=== PATIENT | female | born 1985 | race Caucasian/White ===

== ENCOUNTER 2017-07-09 22:03 | Emergency (ER) | payer OTHER ==
[2017-07-10] MEDS ORDERED: LEVALBUTEROL 1.25 MG/3 ML NEB ONE (00:44)
[2017-07-10] MEDS ORDERED: ACETAMINOPHEN 500 MG TAB ONE (00:44)
--- NOTE | 2017-07-10 01:14 | EDPHYS ---
Physician Documentation [facility] Name: Dejon Vasques Age: 31 yrs Sex: Female : 1985 Arrival Date: 07/09/2017 Time: 22:04 Bed 15 Private MD: ED Physician Ceferino Marinelli HPI: 07/10 00:10 This 31 yrs old Unknown Female presents to ER via Ambulatory with complaints of Chest cp Congestion, Fever, Cough, 6MONTHS . 00:10 The patient or guardian reports cough, that is intermittent. cp 00:10 Onset: The symptoms/episode began/occurred 3 day(s) ago. cp 00:10 Associated signs and symptoms: Pertinent positives: chest pain, with cough, fever, sore cp throat, vomiting. 00:10 Severity of symptoms: in the emergency department the symptoms are unchanged despite cp home interventions. 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 - Social history:: Smoking status: Patient/guardian denies using tobacco, Patient/guardian denies using alcohol, street drugs. ROS: 07/10 00:15 Eyes: Negative for injury, pain, redness, and discharge. cp Constitutional: Positive for fever. ENT: Positive for rhinorrhea, sinus congestion, sinus pain, sore throat, Negative for drainage from ear(s), difficulty swallowing, difficulty handling secretions. Neck: Negative for pain with movement, pain at rest, stiffness. Cardiovascular: Positive for chest pain, with cough, Negative for palpitations. Respiratory: Positive for cough, "sounds productive", shortness of breath, at rest. Abdomen/GI: Negative for abdominal pain, vomiting, diarrhea, constipation, anorexia, dysphagia. Back: Negative for radiated pain. : Negative for urinary symptoms. Skin: Negative for cellulitis, rash. Neuro: Negative for altered mental status, syncope, near syncope, weakness. All other systems are negative. Exam: 00:22 Constitutional: The patient appears in no acute distress, alert, awake, non-toxic, well cp developed, well nourished, appears mildly ill 00:22 Head/face: Sinus tenderness, that is moderate, is located over the right frontal sinus.cp 00:22 Eyes: Periorbital structures: appear normal, Pupils: equal, round, and reactive to light and accomodation, Extraocular movements: intact throughout, Conjunctiva: normal, no exudate, no injection, Sclera: no appreciated abnormality, Lids and lashes: appear normal, bilaterally. 00:22 ENT: External ear(s): are unremarkable, Ear canal(s): are normal, clear, TM's: dullness, bilaterally, Nose: nasal drainage, that is minimal, Mouth: Lips: moist, Oral mucosa: moist, Posterior pharynx: Airway: no evidence of obstruction, patent, Tonsils: no enlargement, no exudate, Uvula: midline, swelling, is not appreciated, erythema, that is mild, exudate, is not appreciated, Voice: is normal. 00:22 Neck: ROM/movement: is normal, is supple, no range of motions limitations, no meningismus, no nuchal rigidity. 00:22 Chest/axilla: Inspection: normal, Palpation: is normal, no crepitus, no tenderness. 00:22 Cardiovascular: Rate: tachycardic, Rhythm: regular. 00:22 Respiratory: the patient does not display signs of respiratory distress, Respirations: normal, no use of accessory muscles, no retractions, no splinting, no tachypnea, labored breathing, is not present, Breath sounds: bronchial sounds, that are mild, are heard diffusely, decreased breath sounds, are not appreciated, stridor, is not appreciated, + upper airway congestion. 00:22 Abdomen/GI: Exam negative for discomfort, distension, guarding, Inspection: gravid appearance, is noted. 00:22 Back: pain, is absent, ROM is normal. 00:22 : CVA tenderness, is absent. 00:22 Skin: cellulitis, is not appreciated, no rash present. 00:22 Neuro: Orientation: to person, place \\T\\ time. Mentation: lucid, able to follow commands, Cerebellar function: is grossly normal, Motor: moves all fours, strength is normal, Sensation: no obvious gross deficits. Vital Signs: 07/09 22:27 BP 132 / 68; Pulse 121; Resp 20 S; Temp 100.5(O); Pulse Ox 98% on R/A; Weight 126.1 kg bb (R); Height 5 ft. 8 in. (172.72 cm) (R); Pain 8/10; 07/10 01:15 BP 128 / 64; Pulse 91; Resp 16; Temp 98.5(O); Pulse Ox 100% on R/A; lk1 07/09 22:27 Body Mass Index 42.27 (126.10 kg, 172.72 cm) bb MDM: 07/09 23:45 Patient medically screened. cp 07/10 00:30 Differential diagnosis: bronchitis, flu, URI. cp 01:12 Data reviewed: vital signs, nurses notes, lab test result(s). cp 01:12 Counseling: I had a detailed discussion with the patient and/or guardian regarding: the cp historical points, exam findings, and any diagnostic results supporting the discharge/admit diagnosis, lab results, the need for outpatient follow up, an OB/Gyne specialist, to return to the emergency department if symptoms worsen or persist or if there are any questions or concerns that arise at home. Response to treatment: the patient's symptoms have markedly improved after treatment, and as a result, I will discharge patient. 03 00:10 Order name: Influenza Screen (a \\T\\ B) cp 07/10 00:10 Order name: Strep cp 07/10 00:10 Order name: Urine Microscopic Only cp 07/10 00:42 Order name: Group A Streptococcus Rapid Sc; Complete Time: 00:56 EDMS 07/10 00:56 Interpretation: Reviewed. cp 07/10 00:43 Order name: Influenza Screen (A ; Complete Time: 00:56 EDMS 07/10 00:56 Interpretation: Reviewed. cp 07/10 00:10 Order name: Urine Test (obtain specimen); Complete Time: 01:50 cp 07/10 00:10 Order name: Urine Dipstick-Ancillary (obtain specimen); Complete Time: 01:50 cp 07/10 00:10 Order name: FHT's; Complete Time: 01:50 cp Administered Medications: 00:10 CANCELLED (Physician Discretion): Albuterol 2.5 mg Inhalation once cp 00:20 Drug: Tylenol 1000 mg Route: PO; ea 01:15 Follow up: Response: No adverse reaction; Temperature is decreased lk1 00:20 Drug: Xopenex 1.25 mg Route: Inhalation; ea Disposition: 02:00 Chart complete. cp Disposition: 07/10/17 01:14 Discharged to Home. Impression: Acute sinusitis, unspecified, Acute upper respiratory infection, unspecified. - Condition is Stable. - Discharge Instructions: Sinusitis, Adult, Upper Respiratory Infection, Adult, Cool Mist Vaporizers. - Prescriptions for Zithromax Z- Larry 250 mg Oral Tablet - take 1 tablet by ORAL route as directed for 5 days Day 1 - take two (2) tablets one time. Day 2, 3, 4 , 5 take one (1) tablet once daily.; 6 tablet. Albuterol Sulfate 90 mcg/actuation - inhale 1-2 puff by INHALATION route every 4-6 hours; 1 Inhaler. - Medication Reconciliation Form, Thank You Letter, Antibiotic Education, Prescription Opioid Use form. - Follow up: Private Physician; When: 2 - 3 days; Reason: Recheck today's complaints. - Problem is new. - Symptoms have improved. Addendum: 07/18/2017 19:01 Co-signature as Attending Physician, Ceferino Marinelli MD. krishna scott Signatures: Dispatcher [employer] EDMS Ceferino Marinelli MD MD pkl Ballard, Brenda, RN RN Zhen Reed PA PA cp Alley Bruner RN RN lk1 Juana Galan RN RN ea Corrections: (The following items were deleted from the chart) 07/10 00:10 00:10 Albuterol 2.5 mg Inhalation once ordered. cp cp
--- NOTE | 2017-07-10 01:14 | ER ---
Nurse's Notes [facility] Name: Dejon Vasques Age: 31 yrs Sex: Female : 1985 Arrival Date: 07/09/2017 Time: 22:04 Bed 15 Private MD: Diagnosis: Acute sinusitis, unspecified;Acute upper respiratory infection, unspecified Presentation: 07/09 22:24 Presenting complaint: Patient states: she is 6 months and has been having bb cough, cold, fever symptoms x 3 days, started vomiting today with lower abdominal pain has been taking tylenol cold and sinus but it is not helping, pt is newly diagnosed gestational diabetes. Transition of care: patient was not received from another setting of care. Onset of symptoms was July 06, 2017. Care prior to arrival: None. 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 - Social history:: Smoking status: Patient/guardian denies using tobacco, Patient/guardian denies using alcohol, street drugs. Screenin/17 01:52 Abuse screen: Denies threats or abuse. Denies injuries from another. Nutritional lk1 screening: No deficits noted. Tuberculosis screening: No symptoms or risk factors identified. Fall Risk None identified. Assessment: 07/09 22:31 General: Appears uncomfortable, Behavior is calm, cooperative, appropriate for age. ea Pain: Complains of pain in right lower quadrant Pain currently is 7 out of 10 on a pain scale. Quality of pain is described as aching, Is episodic, Aggravated by coughing. Neuro: Level of Consciousness is awake, alert, obeys commands, Oriented to person, place, time, situation. Cardiovascular: Heart tones present Patient's skin is warm and dry. Respiratory: Airway is patent Respiratory effort is even, unlabored, Respiratory pattern is regular, symmetrical, Breath sounds with crackles in left posterior lower lobe and right posterior middle lobe. GI: Abdomen is round Bowel sounds present X 4 quads. : No signs and/or symptoms were reported regarding the genitourinary system. EENT: Reports nasal congestion coughing. Derm: Skin is pink, warm \T\ dry. Vital Signs: 22:27 BP 132 / 68; Pulse 121; Resp 20 S; Temp 100.5(O); Pulse Ox 98% on R/A; Weight 126.1 kg bb (R); Height 5 ft. 8 in. (172.72 cm) (R); Pain 8/10; 07/10 01:15 BP 128 / 64; Pulse 91; Resp 16; Temp 98.5(O); Pulse Ox 100% on R/A; lk1 07/09 22:27 Body Mass Index 42.27 (126.10 kg, 172.72 cm) bb Vitals: 01:52 Heart Tones 154 in left lower abdomen. [facility] ED Course: 07/09 22:04 Patient arrived in ED. al2 22:26 Triage completed. bb 22:27 Arm band placed on Patient placed in an exam room, on a stretcher, on pulse oximetry. bb Family accompanied patient. 22:31 Juana Galan, SAIDA is Primary Nurse. ea 22:31 Patient has correct armband on for positive identification. Call light in reach. Side ea rails up X 1. 23:45 Zhen Mujica PA is [facility]. cp 23:45 Ceferino Marinelli MD is Attending Physician. 07/10 01:52 No provider procedures requiring assistance completed. Patient did not have IV access lk1 during this emergency room visit. Administered Medications: 00:10 CANCELLED (Physician Discretion): Albuterol 2.5 mg Inhalation once cp 00:20 Drug: Tylenol 1000 mg Route: PO; ea 01:15 Follow up: Response: No adverse reaction; Temperature is decreased [facility] 00:20 Drug: Xopenex 1.25 mg Route: Inhalation; ea Outcome: 01:14 Discharge ordered by . cp 01:52 Discharged to home ambulatory. lk1 01:52 Condition: stable 01:52 Discharge instructions given to patient, Instructed on discharge instructions, follow up and referral plans. medication usage, safety practices, Demonstrated understanding of instructions, follow-up care, medications, Prescriptions given X 2. 01:53 Patient left the ED. lk1 Signatures: Gianna Little, RN RN bb Zhen Mujica PA PA cp Kluge, Leah, RN RN lk1 Juana Galan RN RN mag Spence, Darcie dang
[2017-07-10 02:12] LABS: Urine Bacteria 20-50 /HPF (<20); Urine Culture Reflex Order REFLEXED; Urine Mucus HEAVY /HPF (NONE SEEN); Urine RBC NONE SEEN /HPF (NONE SEEN)
== END 2017-07-10 01:53 | disposition home or self-care (01) ==
LOC: ER 22:03
DX: J01.90 Acute sinusitis, unspecified (principal); O24.419 Gestational diabetes mellitus in pregnancy, unspecified control; Z3A.23 23 weeks gestation of pregnancy
CPT/HCPCS: 81015; 87070; 87081; 87086; 87088; 87804; 99284

== ENCOUNTER 2018-06-12 19:37 | Emergency (ER) | payer OTHER, SELFPAY ==
[2018-06-12 20:34] LABS: Absolute Lymphocytes (CBC) 3.1 K/uL (0.7-4.9); Absolute Monocytes 0.7 K/uL (0.1-1.3); Absolute Neutrophil 8.1 K/uL (1.8-8.0); Basophils % 0.7 % (0-1.3); Eosinophils % 1.7 % (0-4.4); Hematocrit 42.4 % (36.0-45.0); Lymphocytes % 25.3 % (15.3-44.8); Monocytes % 5.7 % (3.3-12.3); RBC Red Blood Cell Count 4.92 M/uL (3.86-4.86)
[2018-06-12] MEDS ORDERED: NA CHLORIDE 0.9% 1,000 ML ONE (20:46)
[2018-06-12 20:53] LABS: ALT/SGPT 15 U/L (12-78); AST/SGOT 11 U/L (15-37); Albumin 3.4 g/dL (3.4-5.0); Alkaline Phosphatase 109 U/L (45-117); BUN Blood Urea Nitrogen 11 mg/dL (7-18); Bicarbonate 28 mmol/L (21-32); Bilirubin Direct < 0.1 mg/dL (0-0.2); Bilirubin Total 0.2 mg/dL (0.2-1.0); Glucose Level 302 mg/dL (74-106); Lipase 85 U/L (73-393); Potassium 3.6 mmol/L (3.5-5.1); Protein, Total 7.2 g/dL (6.4-8.2); Sodium Level 135 mmol/L (136-145)
--- NOTE | 2018-06-12 21:22 | RAD REPORT ---
EXAM DESCRIPTION: CT - Abdomen Pelvis W Contrast - 06/12/2018 8:48 pm CLINICAL HISTORY: Abdominal pain/lower abdominal pain COMPARISON: none. TECHNIQUE: Computed axial tomography of the abdomen pelvis was obtained. 100 cc Isovue-300 was admin istered intravenously. Oral contrast was not requested which limits evaluation of bowel. All CT scans are performed using dose optimization technique as appropriate and may include automated exposure control or mA/KV adjustment according to patient size. FINDINGS: A 17 millimeter enhancing lesion within the medial segment left lobe liver. Multiple gallstones. Gallbladder wall is not thickened. Spleen, pancreas, adrenal and kidneys appear unremarkable. There is no evidence of diverticulitis. An IUD is in good position. An adnexal mass is not seen A small umbilical hernia is present IMPRESSION: 17 millimeter enhancing lesion within the medial segment of left liver is nonspecific. A nonemergent liver ultrasound recommended for further evaluation Small umbilical hernia Cholelithiasis without gallbladder wall thickening
[2018-06-12 21:51] LABS: Urine Blood NEGATIVE (NEG); Urine Glucose 2+ (NEG); Urine Protein NEGATIVE (NEG); Urine Specific Gravity 1.015 (1.005-1.030)
--- NOTE | 2018-06-12 22:21 | ER ---
Nurse's Notes [facility] Name: Dejon Vasques Age: 32 yrs Sex: Female : 1985 Arrival Date: 06/12/2018 Time: 19:40 Bed 13 Private MD: Diagnosis: Abdominal and pelvic pain Presentation: 06/12 19:55 Presenting complaint: Patient states: since she has been having vaginal aa1 itching and white clumpy vaginal discharge. Reports she thought it was a yeast infection and has been using OTC medications but her symptoms won't go away and today she began to have severe lower abd pain. Reports symptoms began shortly after having a mirena inserted and is unsure if that is related. Also states that she no longer has insurance so she has not been taking her Metformin for several months. Transition of care: patient was not received from another setting of care. Onset: The symptoms/episode began/occurred 3 month(s) ago. Anaphylaxis evaluation, no signs or symptoms of anaphylaxis were noted. Onset of symptoms was February 2018. Risk Assessment: Do you want to hurt yourself or someone else? Patient reports no desire to harm self or others. Initial Sepsis Screen: Does the patient meet any 2 criteria? No. Patient's initial sepsis screen is negative. Does the patient have a suspected source of infection? Yes: Acute abdominal pain. Care prior to arrival: None. 19:55 Method Of Arrival: Ambulatory aa1 19:55 Acuity: ALEJANDRO 3 aa1 Triage Assessment: 19:55 General: Appears in no apparent distress. comfortable, Behavior is calm, cooperative, aa1 appropriate for age. Pain: Denies pain. VENDER: 19:55 LMP 05/27/2018 aa1 Historical: - Allergies: 20:07 No Known Allergies; aa1 - Home Meds: 20:07 Metformin Oral [Active]; aa1 - PMHx: 20:07 gestational diabetes; aa1 - PSHx: 20:07 None; aa1 - Immunization history:: Flu vaccine is not up to date. - Social history:: Smoking status: Patient uses tobacco products, smokes one-half pack cigarettes per day. - Ebola Screening: : No symptoms or risks identified at this time. Screenin:00 Abuse screen: Denies threats or abuse. Nutritional screening: No deficits noted. jb4 Tuberculosis screening: No symptoms or risk factors identified. Fall Risk None identified. Assessment: 20:00 General: Appears in no apparent distress. comfortable, Behavior is calm, cooperative, jb4 appropriate for age. Pain: Denies pain. Neuro: Level of Consciousness is awake, alert, obeys commands, Oriented to person, place, time, situation. Cardiovascular: Patient's skin is warm and dry. Respiratory: Airway is patent Respiratory effort is even, unlabored, Respiratory pattern is regular, symmetrical, Breath sounds are clear bilaterally. GI: No signs and/or symptoms were reported involving the gastrointestinal system. : No signs and/or symptoms were reported regarding the genitourinary system. EENT: No signs and/or symptoms were reported regarding the EENT system. Derm: Skin is intact, Skin is pink, warm \T\ dry. Musculoskeletal: Circulation, motion, and sensation intact. 20:25 Reassessment: Pt to radiology. jb4 21:00 Reassessment: Patient appears in no apparent distress at this time. Patient and/or jb4 family updated on plan of care and expected duration. Pain level reassessed. Patient is alert, oriented x 3, equal unlabored respirations, skin warm/dry/pink. 22:00 Reassessment: Patient appears in no apparent distress at this time. Patient and/or jb4 family updated on plan of care and expected duration. Pain level reassessed. Patient is alert, oriented x 3, equal unlabored respirations, skin warm/dry/pink. 22:52 Reassessment: Patient appears in no apparent distress at this time. Patient and/or jb4 family updated on plan of care and expected duration. Pain level reassessed. Patient is alert, oriented x 3, equal unlabored respirations, skin warm/dry/pink. Vital Signs: 19:55 BP 123 / 54; Pulse 87; Resp 18; Temp 100.3(O); Pulse Ox 97% on R/A; Weight 111.13 kg; aa1 Height 5 ft. 8 in. (172.72 cm); Pain 0/10; 21:00 BP 106 / 42; Pulse 78; Resp 16; Pulse Ox 98% on R/A; jb4 22:00 BP 115 / 61; Pulse 78; Resp 16; Pulse Ox 99% on R/A; jb4 22:52 BP 111 / 63; Pulse 78; Resp 16; Pulse Ox 98% on R/A; jb4 19:55 Body Mass Index 37.25 (111.13 kg, 172.72 cm) aa1 ED Course: 19:40 Patient arrived in ED. am2 19:51 Félix Osorio PA is PHCP. jmm 19:51 Ceferino Marinelli MD is Attending Physician. jmm 19:55 Arm band placed on right wrist. aa1 20:00 Patient has correct armband on for positive identification. Bed in low position. Call jb4 light in reach. Side rails up X 1. Pulse ox on. NIBP on. 20:06 Triage completed. aa1 20:12 Ronn Langley, RN is Primary Nurse. jb4 20:49 CT Abd/Pelvis - W/Contrast In Process Unspecified. EDMS 22:18 Assist provider with pelvic exam: Set up pelvic tray. Performed by Félix GALLARDO aa1 Specimens sent to lab. Patient tolerated well. 22:19 Assist provider with pelvic exam: Performed by Félix GALLARDO Specimens sent to lab. mb4 Patient tolerated well. 22:21 Arnie Wong MD is Referral Physician. m 22:52 IV discontinued, intact, bleeding controlled. jb4 Administered Medications: 04/25 21:00 Drug: NS 0.9% 1000 ml Route: IV; Rate: 1 bolus; Site: right antecubital; jb4 06/12 22:00 Follow up: Response: No adverse reaction; IV Status: Completed infusion jb4 22:34 Drug: metroNIDAZOLE 2 grams Route: PO; jb4 22:51 Follow up: Response: No adverse reaction jb4 22:35 Drug: DiFLUcan 150 mg Route: PO; jb4 22:52 Follow up: Response: No adverse reaction jb4 22:35 Drug: Rocephin (cefTRIAXone) 250 mg Route: IM; Site: right gluteus; jb4 22:52 Follow up: Response: No adverse reaction jb4 22:35 Drug: AZITHromycin 1 grams Route: PO; jb4 22:52 Follow up: Response: No adverse reaction jb4 Outcome: 22:21 Discharge ordered by . jmm 22:52 Discharged to home ambulatory, with significant other. jb4 22:52 Condition: stable 22:52 Discharge instructions given to patient, significant other, Instructed on discharge instructions, follow up and referral plans. medication usage, Demonstrated understanding of instructions, follow-up care, medications, Prescriptions given X 1. 22:54 Patient left the ED. jb4 Signatures: Dispatcher [employer] EDMS Muna Snider RN RN aa1 Félix Osorio PA PA jmm Bryson, James, RN RN jb4 Carey Tovar am2 Maria Antonia Acosta mb4 Corrections: (The following items were deleted from the chart) 21:15 20:00 Respiratory: Airway is patent Respiratory effort is even, unlabored, Respiratory jb4 pattern is regular, symmetrical, jb4
--- NOTE | 2018-06-12 22:21 | EDPHYS ---
Physician Documentation [facility] Name: Dejon Vasques Age: 32 yrs Sex: Female : 1985 Arrival Date: 06/12/2018 Time: 19:40 Bed 13 Private MD: ED Physician Ceferino Marinelli HPI: 06/12 19:59 This 32 yrs old Female presents to ER via Ambulatory with complaints of jmm Allergic Reaction - Control. 19:59 The patient presents with pelvic pain. Onset: The symptoms/episode began/occurred jmm gradually, 3 month(s) ago. Modifying factors: The symptoms are alleviated by nothing, the symptoms are aggravated by nothing. Associated signs and symptoms: Pertinent positives: cramping. This is a 32 year old female with a history of DM that presents to the ED with complaints of pelvic cramping and vaginal itching for the past 3 months. patient states she developed pelvic and lower abdominal pain today. denies fever or chills. patient admits to discharge. patient states she has run out of her metformin. denies vomiting or diarrhea. . 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 - Social history:: Smoking status: Patient uses tobacco products, smokes one-half pack cigarettes per day. - Ebola Screening: : No symptoms or risks identified at this time. ROS: 19:59 Constitutional: Negative for fever, chills, and weight loss, Cardiovascular: Negative jmm for chest pain, palpitations, and edema, Respiratory: Negative for shortness of breath, cough, wheezing, and pleuritic chest pain. 19:59 Skin: Negative for injury, rash, and discoloration, Neuro: Negative for headache, weakness, numbness, tingling, and seizure. 19:59 Abdomen/GI: Positive for abdominal pain. 19:59 : Positive for vaginal discharge, vaginal itching. 19:59 All other systems are negative. Exam: 19:59 Constitutional: This is a well developed, well nourished patient who is awake, alert, jmm and in no acute distress. Head/Face: atraumatic. Eyes: EOMI, no conjunctival erythema appreciated ENT: Moist Mucus Membranes Neck: Trachea midline, Supple Chest/axilla: Normal chest wall appearance and motion. Cardiovascular: Regular rate and rhythm. No edema appreciated Respiratory: Normal respirations, no respiratory distress appreciated 19:59 Abdomen/GI: Inspection: abdomen appears normal, Bowel sounds: normal, Palpation: soft, moderate abdominal tenderness, in the suprapubic area. 19:59 Back: ROM is normal. 19:59 Musculoskeletal/extremity: ROM: intact in all extremities. 19:59 Skin: Appearance: Color: normal in color. 19:59 Neuro: Orientation: is normal, Mentation: is normal, Memory: is normal. 19:59 Psych: Behavior/mood is pleasant, cooperative. 22:19 : Pelvic Exam: External exam: is normal, Speculum exam: os that is closed, IUD string jmm noted, bimanual exam reveals normal findings. Vital Signs: 19:55 BP 123 / 54; Pulse 87; Resp 18; Temp 100.3(O); Pulse Ox 97% on R/A; Weight 111.13 kg; aa1 Height 5 ft. 8 in. (172.72 cm); Pain 0/10; 21:00 BP 106 / 42; Pulse 78; Resp 16; Pulse Ox 98% on R/A; jb4 22:00 BP 115 / 61; Pulse 78; Resp 16; Pulse Ox 99% on R/A; jb4 22:52 BP 111 / 63; Pulse 78; Resp 16; Pulse Ox 98% on R/A; jb4 19:55 Body Mass Index 37.25 (111.13 kg, 172.72 cm) aa1 MDM: 19:59 Patient medically screened. [facility] 22:19 Data reviewed: vital signs, nurses notes. Counseling: I had a detailed discussion with jenna the patient and/or guardian regarding: the historical points, exam findings, and any diagnostic results supporting the discharge/admit diagnosis, lab results, radiology results, the need for outpatient follow up, to return to the emergency department if symptoms worsen or persist or if there are any questions or concerns that arise at home. ED course: Bimanual exam normal. Patient treated for pelvic infection due to discharge. Ct shows no signs of TOA. I discussed liver findings along with the need to follow up. Will refill metformin prescription. Patient is given strict return precautions. Patient understood and agrees with the plan of care. . 06/12 20:00 Order name: Basic Metabolic Panel; Complete Time: 21:52 [facility] 06/12 20:00 Order name: CBC with Diff; Complete Time: 20:57 [facility] 06/12 20:00 Order name: Creatinine for Radiology; Complete Time: 20:57 [facility] 06/12 20:00 Order name: Hepatic Function; Complete Time: 21:52 [facility] 06/12 20:00 Order name: Lipase; Complete Time: 21:52 [facility] 06/12 20:00 Order name: Ketone, Serum; Complete Time: 21:52 [facility] 06/12 20:01 Order name: CT Abd/Pelvis - W/Contrast; Complete Time: 21:27 [facility] 06/12 20:40 Order name: Urine Dipstick--Ancillary (enter results); Complete Time: 21:52 [facility] 06/12 20:40 Order name: Urine --Ancillary (enter results); Complete Time: 21:52 [facility] 06/12 21:29 Order name: GC (GONORR/CHLAMYDIA) Probe [facility] 06/12 20:00 Order name: IV Saline Lock; Complete Time: 20:35 [facility] 06/12 20:00 Order name: Labs collected and sent; Complete Time: 20:35 [facility] 06/12 20:00 Order name: Urine Dipstick-Ancillary (obtain specimen); Complete Time: 20:35 [facility] 06/12 21:28 Order name: Pelvic Exam Setup; Complete Time: 21:46 [facility] Administered Medications: 04/25 21:00 Drug: NS 0.9% 1000 ml Route: IV; Rate: 1 bolus; Site: right antecubital; jb4 06/12 22:00 Follow up: Response: No adverse reaction; IV Status: Completed infusion jb4 22:34 Drug: metroNIDAZOLE 2 grams Route: PO; jb4 22:51 Follow up: Response: No adverse reaction jb4 22:35 Drug: DiFLUcan 150 mg Route: PO; jb4 22:52 Follow up: Response: No adverse reaction jb4 22:35 Drug: Rocephin (cefTRIAXone) 250 mg Route: IM; Site: right gluteus; jb4 22:52 Follow up: Response: No adverse reaction jb4 22:35 Drug: AZITHromycin 1 grams Route: PO; jb4 22:52 Follow up: Response: No adverse reaction jb4 Disposition: 22:19 Chart complete. harjinder 06/13 02:42 Co-signature as Attending Physician, Ceferino Marinelli MD. tania Disposition: 06/12/18 22:21 Discharged to Home. Impression: Abdominal and pelvic pain. - Condition is Stable. - Discharge Instructions: Pelvic Pain, Female. - Prescriptions for Metformin 500 mg Oral Tablet Sustained Release 24 hr - take 1 tablet by ORAL route once daily with evening meal; 20 tablet. - Medication Reconciliation Form, Thank You Letter, Antibiotic Education, Prescription Opioid Use form. - Follow up: Arnie Wong MD; When: 2 - 3 days; Reason: Recheck today's complaints, Continuance of care, Re-evaluation by your physician. Signatures: Dispatcher [employer] EDMS Muna Snider, RN RN aa1 Ceferino Marinelli MD MD pkl Félix Osorio PA PA [facility] Ronn Langley RN RN jb4 Corrections: (The following items were deleted from the chart) 06/12 22:54 22:21 06/12/2018 22:21 Discharged to Home. Impression: Abdominal and pelvic pain. jb4 Condition is Stable. Forms are Medication Reconciliation Form, Thank You Letter, Antibiotic Education, Prescription Opioid Use. Follow up: Arnie Wong; When: 2 - 3 days; Reason: Recheck today's complaints, Continuance of care, Re-evaluation by your physician. [facility]
[2018-06-12] MEDS ORDERED: AZITHROMYCIN 250 MG TAB ONE (22:34)
[2018-06-12] MEDS ORDERED: metroNIDAZOLE 500 MG TABLET ONE (22:35)
[2018-06-12] MEDS ORDERED: CEFTRIAXONE 250 MG/VIAL ONE (22:35)
[2018-06-12] MEDS ORDERED: FLUCONAZOLE 100 MG TAB ONE (22:35)
[2018-06-12] MEDS ORDERED: WATER FOR INJ,STERILE 10 ML ONE (22:35)
[2018-06-15 17:51] LABS: C.trachomatis RNA,TMA Not Detected (Not Detected)
== END 2018-06-12 22:54 | disposition home or self-care (01) ==
LOC: ER 19:37
DX: R10.2 Pelvic and perineal pain (principal); F17.210 Nicotine dependence, cigarettes, uncomplicated
CPT/HCPCS: 36415; 74177; 80048; 80076; 81003; 81025; 82010; 83690; 85025; 87490; 87590; 96360; 96372; 99284; J0696; J7030; Q9967

== ENCOUNTER 2018-10-30 20:50 | Emergency (ER) | payer SELFPAY ==
[2018-10-30 21:48] LABS: Absolute Lymphocytes (CBC) 3.1 K/uL (0.7-4.9); Basophils % 0.9 % (0-1.3); Eosinophils % 1.3 % (0-4.4); Hematocrit 42.1 % (36.0-45.0); Lymphocytes % 34.8 % (15.3-44.8); MPV 8.2 fL (7.6-11.3); Monocytes % 6.1 % (3.3-12.3); RBC Red Blood Cell Count 4.68 M/uL (3.86-4.86)
[2018-10-30 22:04] LABS: Urine Blood TRACE (NEG); Urine Glucose 2+ (NEG); Urine Protein NEGATIVE (NEG); Urine Specific Gravity <1.005 (1.005-1.030); Urine pH 6.5 (5.0-7.0)
[2018-10-30 22:06] LABS: Urine Bacteria NONE SEEN /HPF (<20); Urine Culture Reflex Order NOT NEEDED; Urine RBC NONE SEEN /HPF (NONE SEEN)
[2018-10-30 22:11] LABS: ALT/SGPT 14 U/L (12-78); AST/SGOT 7 U/L (15-37); Albumin 3.4 g/dL (3.4-5.0); Alkaline Phosphatase 93 U/L (45-117); BUN Blood Urea Nitrogen 13 mg/dL (7-18); Bicarbonate 27 mmol/L (21-32); Bilirubin Direct < 0.1 mg/dL (0-0.2); Bilirubin Total 0.2 mg/dL (0.2-1.0); Lipase 129 U/L (73-393); Protein, Total 6.8 g/dL (6.4-8.2); Sodium Level 131 mmol/L (136-145)
[2018-10-30 22:13] LABS: Glucose Level 606 mg/dL (74-106)
--- NOTE | 2018-10-30 23:43 | EDPHYS ---
Physician Documentation [facility] Name: Dejon Vasques Age: 32 yrs Sex: Female : 1985 Arrival Date: 10/30/2018 Time: 20:51 Bed 23 Private MD: ED Physician Chavez Smith HPI: 10/30 22:01 This 32 yrs old Female presents to ER via Ambulatory with complaints of wa problem with control, Abdominal Cramping. 22:01 The patient presents with perineal itching, vaginal area, pelvic pain, that is located wa in/on the pelvis, the pain does not radiate, the pain is described as crampy, urinary symptoms, frequency, also states feels her IUD is dislodged. can feel on the outside. Onset: The symptoms/episode began/occurred 1 week(s) ago. Modifying factors: The symptoms are alleviated by nothing, the symptoms are aggravated by nothing. Associated signs and symptoms: Pertinent positives: cramping, urinary frequency, Pertinent negatives: diarrhea, dyspareunia, dysuria. Severity of symptoms: At their worst the symptoms were moderate, in the emergency department the symptoms are unchanged. The patient is sexually active. The patient's method of control includes IUD. The patient has not experienced similar symptoms in the past. The patient has not recently seen a physician. multiple complaints: states had IUD placed 1 yr ago and has no follow up. states thinks displaced as can feel it on the outside. also states had gestational DM w/ last 1 yr ago. has been told her DM never went away but has no money to see doctor. states urinating and drinking water every 30 minutes x several months. also vaginal itching x several months. OTC yeast medication has not helped. 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 - Social history:: Smoking status: Patient/guardian denies using tobacco. - Ebola Screening: : No symptoms or risks identified at this time. - Family history:: not pertinent. - Hospitalizations: : No recent hospitalization is reported. ROS: 22:07 Positive for urinary symptoms, pelvic pain, vaginal itching. wa 22:07 Constitutional: Negative for fever, chills, and weight loss, Eyes: Negative for injury, pain, redness, and discharge, ENT: Negative for injury, pain, and discharge, Neck: Negative for injury, pain, and swelling, Cardiovascular: Negative for chest pain, palpitations, and edema, Respiratory: Negative for shortness of breath, cough, wheezing, and pleuritic chest pain, Abdomen/GI: Negative for abdominal pain, nausea, vomiting, diarrhea, and constipation, Back: Negative for injury and pain, MS/Extremity: Negative for injury and deformity, Neuro: Negative for headache, weakness, numbness, tingling, and seizure, Psych: Negative for depression, anxiety, suicide ideation, homicidal ideation, and hallucinations. 22:07 : Positive for urinary symptoms, pelvic pain, vaginal itching. Exam: 22:09 Constitutional: This is a well developed, well nourished patient who is awake, alert, wa and in no acute distress. Head/Face: Normocephalic, atraumatic. Eyes: Pupils equal round and reactive to light, extra-ocular motions intact. Lids and lashes normal. Conjunctiva and sclera are non-icteric and not injected. Cornea within normal limits. Periorbital areas with no swelling, redness, or edema. ENT: Nares patent. No nasal discharge, no septal abnormalities noted. Tympanic membranes are normal and external auditory canals are clear. Oropharynx with no redness, swelling, or masses, exudates, or evidence of obstruction, uvula midline. Mucous membranes moist. Neck: Trachea midline, no thyromegaly or masses palpated, and no cervical lymphadenopathy. Supple, full range of motion without nuchal rigidity, or vertebral point tenderness. No Meningismus. Chest/axilla: Normal chest wall appearance and motion. Nontender with no deformity. No lesions are appreciated. Cardiovascular: Regular rate and rhythm with a normal S1 and S2. No gallops, murmurs, or rubs. Normal PMI, no JVD. No pulse deficits. Respiratory: Lungs have equal breath sounds bilaterally, clear to auscultation and percussion. No rales, rhonchi or wheezes noted. No increased work of breathing, no retractions or nasal flaring. Abdomen/GI: Soft, non-tender, with normal bowel sounds. No distension or tympany. No guarding or rebound. No evidence of tenderness throughout. Back: No spinal tenderness. No costovertebral tenderness. Full range of motion. MS/ Extremity: Pulses equal, no cyanosis. Neurovascular intact. Full, normal range of motion. Neuro: Awake and alert, GCS 15, oriented to person, place, time, and situation. Cranial nerves II-XII grossly intact. Motor strength 5/5 in all extremities. Sensory grossly intact. Cerebellar exam normal. Normal gait. Psych: Awake, alert, with orientation to person, place and time. Behavior, mood, and affect are within normal limits. 22:09 : CVA tenderness, is absent, Pelvic Exam: External exam: erythema is noted, excoriation noted, Speculum exam: no bleeding is noted, os that is closed, IUD string noted. 22:10 Skin: noted excoriated, erythematous external vag, vulval area. ma Vital Signs: 21:01 BP 94 / 68; Pulse 90; Resp 16; Temp 98.4; Pulse Ox 98% on R/A; Weight 99.79 kg; Height la1 5 ft. 8 in. (172.72 cm); 22:32 BP 102 / 50; Pulse 70; Resp 16; Pulse Ox 96% on R/A; ak1 21:01 Body Mass Index 33.45 (99.79 kg, 172.72 cm) la1 MDM: 21:05 Patient medically screened. ma 22:13 Differential diagnosis: blessing infection, cervicitis, urinary tract infection, ma vaginosis, consider dislodged IUD. hyperglycemia? will eval. 23:40 Data reviewed: vital signs, nurses notes. Test interpretation: by ED physician or ma midlevel provider: hyperglycemia. US shows low laying IUD. Response to treatment: the patient's symptoms have markedly improved after treatment. ED course: pt knows has DM but does not take her meds. bedside DM teaching done. pt declined admit as has no help with her 4 kids. will start metformin and have f/u closely with primary care clinic. 10/31 06:16 Test interpretation: by ED physician or midlevel provider: labs noted for hyperglycemia wa and glucosuria. 10/30 21:24 Order name: Basic Metabolic Panel ma 10/30 21:24 Order name: CBC with Diff; Complete Time: 22:58 ma 10/30 21:24 Order name: Hepatic Function; Complete Time: 22:59 ma 10/30 21:24 Order name: Lipase; Complete Time: 22:59 ma 10/30 21:24 Order name: Urine Microscopic Only; Complete Time: 22:59 ma 10/30 21:24 Order name: Wet Prep; Complete Time: 22:59 ma 10/30 21:24 Order name: IV Saline Lock; Complete Time: 21:47 ma 10/30 21:24 Order name: Labs collected and sent; Complete Time: 21:47 ma 10/30 21:24 Order name: Urine Dipstick-Ancillary (obtain specimen); Complete Time: 21:47 ma 10/30 21:24 Order name: GC (GONORR/CHLAMYDIA) Probe 10/30 21:25 Order name: Basic Metabolic Panel; Complete Time: 22:59 EDMS 10/30 21:25 Order name: US Transvaginal Study (Probe) ma 10/30 21:46 Order name: Urine Dipstick--Ancillary (enter results); Complete Time: 22:59 ar5 10/30 21:50 Order name: Test, Serum; Complete Time: 06:16 ma Administered Medications: No medications were administered Disposition: 10/30/18 23:43 Discharged to Home. Impression: hyperglycemia, dislodged IUD. - Condition is Stable. - Discharge Instructions: Hyperglycemia, [id number]. - Prescriptions for Metformin 500 mg Oral Tablet - take 1 tablet by ORAL route 2 times per day daily Then take 1 tablet with morning meals AND evening meals; 90 tablet. Potassium Chloride 20 meq Oral Packet - take 1 packet by ORAL route once daily 1 packet in 6 (six) ounces of water or juice; Take after meal; 30 packet. - Medication Reconciliation Form, Thank You Letter, Antibiotic Education, Prescription Opioid Use form. - Follow up: Terence Aguilar MD; When: 1 - 2 days; Reason: Recheck today's complaints. - Problem is new. - Symptoms have improved. - Notes: your IUD needs checked as it may be laying lower than desired. you need other forms of barrier protection until you can get this rectified. you may get otherwise if you do not use other forms of protection. take your diabetes medicine. check your glucose daily. follow up with primary care Signatures: Dispatcher [employer] Kalen Lugo RN RN la1 Caridad Lopes RN RN ak1 Chavez Smith MD MD wa Corrections: (The following items were deleted from the chart) 10/30 21:47 21:24 Urine Test ordered. dylan connolly 23:57 23:43 10/30/2018 23:43 Discharged to Home. Impression: hyperglycemia; dislodged IUD. ak1 Condition is Stable. Forms are Medication Reconciliation Form, Thank You Letter, Antibiotic Education, Prescription Opioid Use. Follow up: Terence Aguilar; When: 1 - 2 days; Reason: Recheck today's complaints. Problem is new. Symptoms have improved. dylan
--- NOTE | 2018-10-30 23:43 | ER ---
Nurse's Notes [facility] Name: Dejon Vasques Age: 32 yrs Sex: Female : 1985 Arrival Date: 10/30/2018 Time: 20:51 Bed 23 Private MD: Diagnosis: hyperglycemia;dislodged IUD Presentation: 10/30 20:59 Presenting complaint: Patient states: I have an IUD and for the last 2 weeks I have la1 been having vaginal bleeding with clots, much heavier normal cycle, the string for my IUD is so far out that I feel it when I wipe. I have had the IUD for less than one year. Transition of care: patient was not received from another setting of care. Onset of symptoms was October 30, 2018. Risk Assessment: Do you want to hurt yourself or someone else? Patient reports no desire to harm self or others. Initial Sepsis Screen: Does the patient meet any 2 criteria? No. Patient's initial sepsis screen is negative. Does the patient have a suspected source of infection? No. Patient's initial sepsis screen is negative. Care prior to arrival: None. 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 - Social history:: Smoking status: Patient/guardian denies using tobacco. - Ebola Screening: : No symptoms or risks identified at this time. - Family history:: not pertinent. - Hospitalizations: : No recent hospitalization is reported. Screenin:43 Abuse screen: Denies threats or abuse. Denies injuries from another. Nutritional aj screening: No deficits noted. Tuberculosis screening: No symptoms or risk factors identified. Fall Risk None identified. Assessment: 21:43 General: Appears in no apparent distress. comfortable, Behavior is calm, cooperative, aj appropriate for age. Pain: Complains of pain in pelvis. Respiratory: Airway is patent Respiratory effort is even, unlabored, Respiratory pattern is regular, symmetrical. GI: Abdomen is non-distended, obese, Bowel sounds present X 4 quads. Abd is soft and non tender. : Reports pain in suprapubic area. Derm: Skin is intact, is healthy with good turgor, Skin is pink, warm \\T\\ dry. normal. 22:00 Reassessment: US at bedside. ak1 22:29 Reassessment: pt stated she was given metformin 05/2018 but can not afford the ak1 medication. pt stated she "checks my blood sugar when I feel crazy" when asked what she does with high blood sugars, pt stated she drinks water and lays down "until the crazy feeling passes". 22:35 Reassessment: pt informed that ERP plans to admit pt. ak1 23:01 Reassessment: ERP at bedside to inform pt of admission. Charge nurse notified of need ak1 of pt child to stay the night with pt, Head Of Operation And Logistics contacted and 7 year old child could not stay. ERP decided to discharge pt. Vital Signs: 21:01 BP 94 / 68; Pulse 90; Resp 16; Temp 98.4; Pulse Ox 98% on R/A; Weight 99.79 kg; Height la1 5 ft. 8 in. (172.72 cm); 22:32 BP 102 / 50; Pulse 70; Resp 16; Pulse Ox 96% on R/A; ak1 21:01 Body Mass Index 33.45 (99.79 kg, 172.72 cm) la1 ED Course: 20:51 Patient arrived in ED. am2 21:01 Triage completed. la1 21:01 Arm band placed on right wrist. la1 21:04 Caridad Lopes, RN is Primary Nurse. ak1 21:05 Chavez Smith MD is Attending Physician. wa 21:40 No apparent distress. Resting quietly. Awaiting lab results. ch 21:40 Patient has correct armband on for positive identification. Placed in gown. Bed in low ch position. Call light in reach. Side rails up X 1. Adult w/ patient. Warm blanket given. 21:40 Assist provider with pelvic exam: Set up pelvic tray. Performed by Chavez Smith MD Specimens sent to lab. Patient tolerated well. pthysician was very clinical in his exam, pt tolerated well. pt genitalia appeared red and irritated on the outside. 21:43 Inserted saline lock: 20 gauge in right antecubital area, using aseptic technique. aj Blood collected. 22:10 Initial lab(s) drawn, by ut, sent to lab. jp3 22:13 Notified ED physician of a critical lab result(s). glucose 606. ak1 22:20 Test, Serum Sent. jp3 22:39 Ultrasound completed. Patient tolerated well. Notified ED Physician leon. sg3 22:41 US Transvaginal Study (Probe) In Process Unspecified. EDMS 23:42 Terence Aguilar MD is Referral Physician. wa 23:50 IV discontinued, intact, bleeding controlled, No redness/swelling at site. Pressure jp3 dressing applied. 23:57 IV discontinued. ak1 Administered Medications: No medications were administered Outcome: 23:43 Discharge ordered by . wa 23:56 Discharged to home ambulatory. ak1 23:56 Condition: good 23:56 Discharge instructions given to patient, family, Instructed on discharge instructions, follow up and referral plans. no drinking with medication, no driving heavy equipment, medication usage, safe sex practices, Demonstrated understanding of instructions, follow-up care, medications, Prescriptions given X 2. 23:57 Patient left the ED. ak1 Signatures: Dispatcher [employer] EDCA Mercedes Gore RN RN ch Myers, Amanda RN Kalen Anton RN RN la1 Krenek, Amber RN Carey Chatterjee William, MD MD wa Godinez, Sarah sg3 Aroldo Garcia jp3
--- NOTE | 2018-10-31 09:26 | RAD REPORT ---
EXAM DESCRIPTION: US - Transvaginal Study Probe - 10/30/2018 10:40 pm CLINICAL HISTORY: The patient is 32 years old and is Female; pelvic pain. concern for IUD dislodgeme nt TECHNIQUE: Real-time transvaginal pelvic ultrasound (complete) with image documentation. Transvagi nal imaging was used for better evaluation of the endometrium and adnexa. Real-time duplex ultrasou nd scan of the arterial and venous flow of the pelvis with color Doppler flow and spectral waveform a nalysis. COMPARISON: No relevant prior studies available. FINDINGS: UTERUS/CERVIX: An IUD is present which is located within the lower uterine segment. Th e uterus measures 9.4 x 4.0 x 4.4 cm. The endometrium measures 0.6 cm. No myometrial mass. RIGHT OVARY: The right ovary measures 3.8 x 1.5 x 2.4 cm. Normal arterial and venous color Doppl er and spectral waveform is present. No torsion. LEFT OVARY: The left ovary measures 2.8 x 1.7 x 2.5 cm. Normal arterial and venous color Doppler and spectral waveform is present. No torsion. FREE FLUID: No free fluid. BLADDER: Empty bladder which cannot be evaluated with this probe. IMPRESSION: Malpositioned IUD, located within the lower uterine segment. Electronically signed by: Tamar Correa MD 10/31/2018 12:54 AM CDT Due to temporary technical issues with the PACS/Fluency reporting system, reports are being signed by the in house radiologist as a courtesy to ensure prompt reporting. The interpreting radiologist is f ully responsible for the content of the report.
[2018-11-03 02:27] LABS: C.trachomatis RNA,TMA Not Detected (Not Detected)
== END 2018-10-30 23:57 | disposition home or self-care (01) ==
LOC: ER 20:50
DX: T83.89XA Other specified complication of genitourinary prosthetic devices, implants and grafts, initial encounter (principal); R73.9 Hyperglycemia, unspecified; Z86.32 Personal history of gestational diabetes
CPT/HCPCS: 36415; 76830; 80048; 80076; 81003; 81015; 83690; 84703; 85025; 87210; 87490; 87590; 99284